=== PATIENT | female | born 1980 | race Caucasian/White ===

== ENCOUNTER 2018-03-14 00:45 | Emergency (ER) | payer OTHER ==
[~2018-03-14] VITALS: Ht 162.6 cm; Wt 45.4 kg
[2018-03-14 02:20] VITALS: BP 114/72
== END 2018-03-14 02:28 | disposition home or self-care (01) ==
LOC: M.ERS 00:45
DX: S50.02XA Contusion of left elbow, initial encounter (principal); S00.512A Abrasion of oral cavity, initial encounter; V89.0XXA Person injured in unspecified motor-vehicle accident, nontraffic, initial encounter; Y93.89 Activity, other specified; Y92.89 Other specified places as the place of occurrence of the external cause; Y99.2 Volunteer activity; F17.210 Nicotine dependence, cigarettes, uncomplicated

== ENCOUNTER 2020-09-29 17:28 | Emergency (ER) | payer OTHER, MEDICAID ==
[~2020-09-29] VITALS: Ht 162.6 cm; Wt 45.4 kg
[2020-09-29 17:44] LABS: URINE BILIRUBIN NEGATIVE (Negative); URINE BLOOD NEGATIVE (Negative); URINE CLARITY CLOUDY; URINE COLOR YELLOW; URINE GLUCOSE-RANDOM NEGATIVE (Negative); URINE KETONES TRACE (Negative); URINE LEUKOCYTES-REFLEX NEGATIVE (Negative); URINE PROTEIN NEGATIVE (Negative)
[2020-09-29 17:47] LABS: URINE NITRITE-REFLEX POSITIVE (Negative)
[2020-09-29] MEDS ORDERED: CEPHALEXIN500 MG PO (17:57)
[2020-09-29] MEDS ORDERED: PYRIDIUM100 M1 PO (17:57)
[2020-09-29 18:03] LABS: BACTERIA-REFLEX >30 Many /HPF (None Seen); CASTS None Seen /LPF (None Seen); CRYSTALS None Seen /LPF (None Seen); MUCUS >6 Heavy strn/LPF (None Seen); SQUAMOUS 4-10 Moderate /LPF (0-3); URINE RBC 0-2 Rare /HPF (0-2); URINE WBC-REFLEX 6-15 Few /HPF (0-5)
[2020-09-29 18:20] VITALS: BP 128/80
== END 2020-09-29 18:20 | disposition home or self-care (01) ==
LOC: M.ERS 17:28
PROVIDERS: Nurse Practitioner Family
DX: N39.0 Urinary tract infection, site not specified (principal); F17.210 Nicotine dependence, cigarettes, uncomplicated

== ENCOUNTER 2021-05-20 14:36 | Emergency (ER) | payer OTHER, MEDICAID ==
[~2021-05-20] VITALS: Ht 162.6 cm; Wt 45.4 kg
[~2021-05-20 14:36] MED LIST: CEPHALEXIN500 MG PO; PYRIDIUM100 M1 PO
[2021-05-20 15:04] VITALS: BP 122/66
== END 2021-05-20 15:20 | disposition left against medical advice (07) ==
LOC: M.ERS 14:36
DX: J02.9 Acute pharyngitis, unspecified (principal); R05.9 Cough, unspecified; R53.1 Weakness; R53.83 Other fatigue; R09.89 Other specified symptoms and signs involving the circulatory and respiratory systems; Z53.21 Procedure and treatment not carried out due to patient leaving prior to being seen by health care provider